=== PATIENT | male | born 1975 | race African-American/Black ===

== ENCOUNTER 2018-02-20 05:15 | Emergency (ER) | payer SELFPAY ==
--- NOTE | 2018-02-20 05:54 | ER Document Report ---
Doctor's Note Notes: 02/20/18 05:52 I performed a quick triage evaluation the patient. Patient is a 42-year-old male who presents with blood in his urine. Blood started after he had an episode yesterday where he was in a house that is working on and he did not have running water. He had urinate very badly and had to get outside and therefore he squeezed onto the head of his penis and held it tightly until he can get outside. When he let go the Peaden had pain and then after that he had blood. Now whenever he urinates he has some pain in the penis itself and then after the urine is done flowing he says he has blood the follows. No abnormal discharge. No pain in the abdomen. No pain in the back or kidneys. On exam patient has a paper towel in his pants and has a few drops of blood. Patient does not have any swelling or deformity to the penis on exam. Order UA. Patient will be reevaluated by the oncoming morning ER physician and urine results will be interpreted by him. Dictation of this chart was performed using voice recognition software; therefore, there may be some unintended grammatical errors.
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
[2018-02-20 06:21] LABS: APPEARANCE,URINE CLOUDY; BILIRUBIN,URINE NEGATIVE (NEGATIVE); GLUCOSE, URINE NEGATIVE (NEGATIVE); KETONES,URINE NEGATIVE (NEGATIVE); LEUKOCYTE ESTERASE,URINE NEGATIVE (NEGATIVE); NITRITE,URINE NEGATIVE (NEGATIVE); PROTEIN,URINE >=500 mg/dL (NEGATIVE); URINE SPECIFIC GRAVITY 1.028; UROBILINOGEN,URINE NEGATIVE mg/dL (<2.0)
[2018-02-20 06:32] LABS: COLOR,URINE RED
[2018-02-20] MEDS ORDERED: DOXYCYCLINE HYCLATE 100 MG TABLET PO ONE (06:43)
[2018-02-20] MEDS ORDERED: PHENAZOPYRIDINE HCL 200 MG TABLET PO ONE (06:43)
[2018-02-20 07:03] VITALS: BP 121/74
== END 2018-02-20 07:03 | disposition home or self-care (01) ==
LOC: ER 05:15
DX: N30.01 Acute cystitis with hematuria (principal); F17.200 Nicotine dependence, unspecified, uncomplicated
CPT/HCPCS: 99283; 87086; 81001; J3490

== ENCOUNTER 2019-11-06 19:05 | Emergency (ER) | payer SELFPAY ==
[2019-11-06 19:10] VITALS: BP 126/80
[2019-11-06] MEDS ORDERED: HYDROCODONE/ACETAMINOPHEN 5-325 MG TABLET PO ONE (19:34)
[2019-11-06] MEDS ORDERED: KETOROLAC TROMETHAMINE 60 MG/2 ML SDV IM ONE (19:34)
[2019-11-06] MEDS ORDERED: CLINDAMYCIN HCL 150 MG CAPSULE PO ONE (19:35)
--- NOTE | 2019-11-06 19:39 | ER Document Report ---
ED Oral Problem - General Chief Complaint: Toothache Stated Complaint: TOOTH PAIN Time Seen by Provider: 11/06/19 19:29 Primary Care Provider: JUAN ZENDEJAS DDS [NO LOCAL MD] - Follow up in 3-5 days TRAVEL OUTSIDE OF THE [place] IN LAST 30 DAYS: No - HPI Notes: 44-year-old male to the emergency department with complaints of progressively worsening right lower tooth ache for the past 4 days. Patient states that about 2 months ago the tooth broke. He states that he wanted try to get a dentist and is just been using [id number] dental medicines to try to help with the tooth. States it was not that painful until most recently about 4 days ago it started to ache. He denies any fevers or chills. He denies any facial swelling. He denies any drooling. He denies any difficulty swallowing or difficulty breathing. He is allergic to penicillins - Related Data Allergies/Adverse Reactions: Penicillins Allergy (Verified 11/06/19 19:34) Past Medical History - General Information source: Patient - Social History Smoking Status: Current Every Day Smoker Frequency of alcohol use: Social Drug Abuse: Marijuana Family History: Reviewed & Not Pertinent Renal/ Medical History: Denies: Hx Peritoneal Dialysis Review of Systems - Review of Systems Constitutional: denies: Chills, Fever EENT: See HPI, Dental problem. denies: Throat pain, Difficulty swallowing, Throat swelling Cardiovascular: denies: Chest pain, Dyspnea, Dizziness, Lightheaded Respiratory: denies: Cough, Short of breath Gastrointestinal: denies: Abdominal pain, Diarrhea, Nausea, Vomiting Skin: No symptoms reported Neurological/Psychological: No symptoms reported -: Yes All other systems reviewed and negative Physical Exam - Vital signs Vitals: Temp Pulse Resp BP Pulse Ox 98.7 F 95 20 126/80 H 98 11/06/19 19:08 11/06/19 19:08 11/06/19 19:08 11/06/19 19:08 11/06/19 19:08 Interpretation: Normal - General General appearance: Appears well, Alert In distress: Mild Notes: Mild pain distress - HEENT Head: Normocephalic, Atraumatic Eyes: Normal Pupils: PERRL Ears: Normal External canal: Normal Tympanic membrane: Normal. No: Bulging, Hemotympanum Sinus: Normal Nasal: Normal Mouth/Lips: Caries - On the right lower jaw tooth #31 there are dental caries and is evident the patient has broken this tooth a while ago. There are multiple dental caries throughout. This tooth is very tender to palpation. The gum is mildly erythematous and edematous around the tooth but there is no jayjay dental abscess. There is no Jj's angina. There is no drooling. Airway is grossly patent. There is no facial swelling. Pharynx: Normal. No: Peritonsillar abscess, Uvular edema - Respiratory Respiratory status: No respiratory distress Chest status: Nontender Breath sounds: Normal Chest palpation: Normal - Cardiovascular Rhythm: Regular Heart sounds: Normal auscultation Murmur: No - Abdominal Inspection: Normal Distension: No distension Bowel sounds: Normal Tenderness: Nontender Organomegaly: No organomegaly - Neurological Neuro grossly intact: Yes Cognition: Normal Orientation: AAOx4 Yesi Coma Scale Eye Opening: Spontaneous Yesi Coma Scale Verbal: Oriented Yesi Coma Scale Motor: Obeys Commands Yesi Coma Scale Total: 15 Speech: Normal Motor strength normal: LUE, RUE, LLE, RLE Sensory: Normal - Psychological Associated symptoms: Normal affect, Normal mood - Skin Skin Temperature: Warm Skin Moisture: Dry Skin Color: Normal Course - Re-evaluation Re-evalutation: Impression: Dental caries, dental pain. Will culture and start the patient on antibiotics and pain control outpatient follow-up with dentist for further evaluation. Patient agrees with the plan. Patient instructed to return if any worsening symptoms such as significant facial swelling inability to breathe, fevers, or any other concerns. - Vital Signs Vital signs: Temp Pulse Resp BP Pulse Ox 98.7 F 95 20 126/80 H 98 11/06/19 19:08 11/06/19 19:08 11/06/19 19:08 11/06/19 19:08 11/06/19 19:08 Discharge - Discharge Clinical Impression: Dental caries, Pain, dental Condition: Stable Disposition: HOME, SELF-CARE Instructions: [facility], Clindamycin ([facility]), Toothache ([facility] / [facility]) Additional Instructions: Follow-up with the dentist clinic without fail. Complete all antibiotics. Take medicine as prescribed. Return if worsening symptoms such as fever, facial swelling, difficulty swallowing, inability to open her mouth., Shortness of breath. Prescriptions: Clindamycin HCl 300 mg PO TID #30 capsule Ibuprofen [Motrin 800 mg Tablet] 800 mg PO Q8H PRN #30 tab PRN Reason: Hydrocodone/Acetaminophen [[place] 5-325 Tablet] 1 each PO Q6H #12 tablet Chlorhexidine Gluconate [Peridex] 15 ml MM BID #420 ml Referrals: JUAN ZENDEJAS DDS [NO LOCAL MD] - Follow up in 3-5 days
== END 2019-11-06 20:05 | disposition home or self-care (01) ==
LOC: ER 19:05
DX: K02.9 Dental caries, unspecified (principal); K08.89 Other specified disorders of teeth and supporting structures; Z88.0 Allergy status to penicillin; F17.200 Nicotine dependence, unspecified, uncomplicated
CPT/HCPCS: 99284; 96372; J1885